=== PATIENT | female | born 1985 | race African-American/Black ===

== ENCOUNTER 2020-08-01 18:10 | Emergency (ER) | payer MEDICAID ==
[~2020-08-01] VITALS: Ht 160 cm; Wt 70.8 kg
[2020-08-01 18:18] VITALS: BP_SYST 134
--- NOTE | 2020-08-01 18:28 | NUR ---
Patient triaged and placed in waiting room. VSS and patient appears in no acute distress at this time. Awaiting available bed, and MD notified of need for MSE.
--- NOTE | 2020-08-01 18:55 | NUR ---
Patient to ER bed 8 to gown for evaluation. Side rails up.
--- NOTE | 2020-08-01 19:20 | NUR ---
Pt presents to the ER c/o vaginal white d/c and itchness x 1 day. Pt reports starting amoxcillin medication for tooth infection. Denies vaginal bleeding and odor. Denies fever, chills CP.
--- NOTE | 2020-08-01 20:50 | NUR ---
Pelvic exam performed by Dr Arce with Geneva WHITFIELD at bedside for entire examination. Patient tolerated procedure WELL. Patient assisted to position of comfort after examination.
--- NOTE | 2020-08-01 20:58 | NUR ---
Vaginal wet mount sent to LAB.
[2020-08-01] MEDS ORDERED: FLUCONAZOLE 200 MG TABLET (DIFLUCAN) PO ONE (22:00)
[2020-08-01 22:05] LABS: BILIRUBIN,URINE NEGATIVE (NEGATIVE); BLOOD, URINE 1+ (NEGATIVE); CLARITY/URINE CLEAR (CLEAR); COLOR,URINE YELLOW (YELLOW); GLUCOSE,URINE NEGATIVE (NEGATIVE); KETONES,URINE TRACE (NEGATIVE); LEUKOCYTE ESTERASE ,URINE 2+ (NEGATIVE); NITRITE, URINE NEGATIVE (NEGATIVE); PH,URINE 5.5 (5.0-8.0); PROTEIN URINE NEGATIVE (NEGATIVE); UROBILINOGEN,URINE 0.2 (0.2-1.0)
[2020-08-01 22:19] LABS: BACTERIA,URINE FEW /HPF (None Seen); HYALINE CASTS, URINE 0-10 /LPF (None Seen); WBC,URINE 20-50 /HPF (0-3)
[2020-08-01 22:32] VITALS: BP_SYST 134
--- NOTE | 2020-08-01 22:32 | NUR ---
Patient given written and verbal discharge instructions and verbalizes understanding. ER MD discussed with patient the results and treatment provided. Patient in stable condition. ID arm band removed. Patient educated on pain management and to follow up with PMD. Opportunity for questions provided and answered. Medication side effect fact sheet provided.
== END 2020-08-01 22:32 | disposition home or self-care (01) ==
LOC: SED 18:10
DX: B37.3 Candidiasis of vulva and vagina (principal); Z88.8 Allergy status to other drugs, medicaments and biological substances
CPT/HCPCS: 81000-TC; 87086; 87210-TC; 99283; 99284

== ENCOUNTER 2020-10-13 05:46 | Emergency (ER) | payer MEDICAID ==
[~2020-10-13] VITALS: Ht 160 cm; Wt 69.4 kg
[2020-10-13 05:57] VITALS: BP_SYST 116
--- NOTE | 2020-10-13 06:00 | NUR ---
Placed in room 5. To gown for exam. Side rails up. Report given to Melissa WHITFIELD.
--- NOTE | 2020-10-13 06:01 | NUR ---
ER Dr. Wellington at bedside examining patient.
--- NOTE | 2020-10-13 06:02 | NUR ---
Patient came to ER with family. C/O lower abdominal pain x 1 week. Per patient report, lower abdominal pain and vaignal spotting over one week. LMP 09/20/2020.
--- NOTE | 2020-10-13 06:23 | NUR ---
Pelvic exam performed by with ROSEANN Torres at bedside for entire examination. Patient tolerated procedure well. Patient assisted to position of comfort after examination.
[2020-10-13 06:45] LABS: BILIRUBIN,URINE NEGATIVE (NEGATIVE); BLOOD, URINE 3+ (NEGATIVE); CLARITY/URINE TURBID (CLEAR); COLOR,URINE YELLOW (YELLOW); GLUCOSE,URINE NEGATIVE (NEGATIVE); KETONES,URINE NEGATIVE (NEGATIVE); LEUKOCYTE ESTERASE ,URINE TRACE (NEGATIVE); NITRITE, URINE NEGATIVE (NEGATIVE); PH,URINE 5.5 (5.0-8.0); PROTEIN URINE TRACE (NEGATIVE); UROBILINOGEN,URINE 0.2 (0.2-1.0)
[2020-10-13] MEDS ORDERED: cefTRIAXone 1 GM IVPB PREMIX 50 ML IV ONE (06:45)
[2020-10-13 07:05] LABS: BACTERIA,URINE MODERATE /HPF (None Seen); RBC,URINE 20-50 /HPF (0-3); YEAST,URINE Few /HPF (None Seen)
[2020-10-13] MEDS ORDERED: FLUCONAZOLE 100 MG TABLET (DIFLUCAN) PO ONE (07:15)
[2020-10-13] MEDS ORDERED: FLUCONAZOLE 100 MG TABLET (DIFLUCAN) ONE (07:18)
[2020-10-13 07:41] VITALS: BP_SYST 136
--- NOTE | 2020-10-13 07:43 | NUR ---
Patient given written and verbal discharge instructions and verbalizes understanding. ER MD discussed with patient the results and treatment provided. Patient in stable condition. ID arm band removed. IV catheter removed intact and dressing applied, no active bleeding. Rx of Diflucan and Doxycycline given. Patient educated on pain management and to follow up with PMD. Pain Scale 0/10. Opportunity for questions provided and answered. Medication side effect fact sheet provided.
== END 2020-10-13 07:43 | disposition home or self-care (01) ==
LOC: SED 05:46
DX: B37.3 Candidiasis of vulva and vagina (principal); N39.0 Urinary tract infection, site not specified; R10.2 Pelvic and perineal pain
CPT/HCPCS: 36415; 81000; 83605; 87040; 87086; 87210; 96365; 99284; J0696

== ENCOUNTER 2020-11-15 04:42 | Emergency (ER) | payer MEDICAID ==
[~2020-11-15] VITALS: Ht 160 cm; Wt 68.0 kg
[2020-11-15 04:50] VITALS: BP_SYST 127
[2020-11-15 05:52] LABS: BILIRUBIN,URINE NEGATIVE (NEGATIVE); COLOR,URINE YELLOW (YELLOW); GLUCOSE,URINE NEGATIVE (NEGATIVE); KETONES,URINE NEGATIVE (NEGATIVE); LEUKOCYTE ESTERASE ,URINE TRACE (NEGATIVE); NITRITE, URINE NEGATIVE (NEGATIVE); PROTEIN URINE NEGATIVE (NEGATIVE); UROBILINOGEN,URINE 0.2 (0.2-1.0)
[2020-11-15 05:56] LABS: BLOOD, URINE TRACE (NEGATIVE); CLARITY/URINE SLIGHTLY HAZY (CLEAR)
[2020-11-15 06:15] LABS: BACTERIA,URINE FEW /HPF (None Seen)
[2020-11-15 06:30] VITALS: BP_SYST 122
[2020-11-18 02:06] LABS: CHLAMYDIA TRACHOMATIS NAA Negative (Negative); NEISSERIA GONORRHOEAE NAA Negative (Negative)
== END 2020-11-15 06:30 | disposition home or self-care (01) ==
LOC: SED 04:42
DX: B37.3 Candidiasis of vulva and vagina (principal); N89.8 Other specified noninflammatory disorders of vagina
CPT/HCPCS: 81000-TC; 87086; 87210-TC; 87491; 87591; 99284